=== PATIENT | male | born 1980 | race Caucasian/White ===

== ENCOUNTER 2018-03-22 09:25 | Day surgery (SDC) | payer OTHER ==
[2018-03-22] VITALS (7 sets, daily range): BP systolic 121–172; BP diastolic 45–84; PULSE 69–96; RESP 16–22; Ht 190.5 cm; Wt 99.6 kg
[~2018-03-22] VITALS: Ht 190.5 cm; Wt 99.6 kg
--- NOTE | 2018-03-22 08:16 | HPN ---
Date/Time of Note Date/Time of Note DATE: 03/22/18 TIME: 08:15 Interval H&P Admission Note Pt. seen H&P reviewed: No system changes TREY PALOMARES MD Mar 22, 2018 08:16
[~2018-03-22 09:25] MED LIST: DESFLURANE 15 MIN ONE; PROPOFOL 200 MG INJ ONE
[2018-03-22] MEDS ORDERED: ROPIVACAINE 0.5 % 30 ML VIAL ONE ×2 (13:42→14:42)
[2018-03-22] MEDS ORDERED: ONDANSETRON 4 MG INJ ONE (13:43)
[2018-03-22] MEDS ORDERED: FENTAnyl 50 MCG/ML VIAL ONE (13:43)
[2018-03-22] MEDS ORDERED: MIDAZOLAM 1 MG/ML 2 ML INJ ONE (13:43)
[2018-03-22] MEDS ORDERED: KETOROLAC 30 MG INJ ONE (13:43)
[2018-03-22] MEDS ORDERED: METOCLOPRAMIDE 10 MG INJ ONE (13:43)
[2018-03-22] MEDS ORDERED: GLYCOPYRROLATE 0.4 MG INJ ONE (13:45)
[2018-03-22] MEDS ORDERED: NEOSTIGMINE 3 MG/3 ML SYRINGE ONE (13:45)
[2018-03-22] MEDS ORDERED: EPINEPHrine 1 MG/ML 30 ML INJ ZFS ONE (14:00)
[2018-03-22] MEDS ORDERED: HYDROmorphONE 1 MG/5 ML IV SYRINGE IV PRN ×3 (14:30)
[2018-03-22] MEDS ORDERED: DIPHENHYDRAMINE 50 MG INJ IV PRN (14:30)
[2018-03-22] MEDS ORDERED: OXYCODONE/ACETAMINOPHEN (5/325) TAB PO PRN ×2 (14:30)
[2018-03-22] MEDS ORDERED: MEPERIDINE 25 MG INJ IV PRN (14:30)
[2018-03-22] MEDS ORDERED: ONDANSETRON 4 MG INJ IV PRN ×2 (14:30→17:30)
--- NOTE | 2018-03-22 14:30 | PREAC ---
Date/Time of Note Date/Time of Note DATE: 03/22/18 TIME: 14:26 Anesthesia Eval and Record Evaluation Time Pre-Procedure Interview DATE: 03/22/18 TIME: 14:26 Age 37 Sex male NPO: 8 hrs Preoperative diagnosis right knee ACL tear, medial meniscus tear Planned procedure right knee arthroscopy ACL reconstruction using pattellar tendon allograft repair medial meniscus or meniscectomy Past Medical History Past Medical History: None Surgery & Anesthesia Issues No known issue Meds Anticoagulation: No Beta Idalmis within 24 hr: No Reason Beta Idalmis not given: Pt. not on B-Idalmis No Active Prescriptions or Reported Meds Meds reviewed: Yes Allergies Coded Allergies: No Known Allergy (Unverified , 03/21/18) Allergies Reviewed: Yes Labs/Studies Labs Reviewed: Reviewed by anesthesiologist Blood Bank Test 03/22/18 10:00 Antibody Screen NEGATIVE Blood Type A POSITIVE test: N/A Studies: ECG (n/a), CXR (n/a) Pre-procedure Exam Last vitals Vital Signs Date Temp Pulse Resp B/P (MAP) Pulse Ox O2 O2 Flow FiO2 Time Delivery Rate 03/22/18 97.6 69 16 121/83 98 Room Air 10:15 (96) Airway: Adequate mouth opening Mallampati: Mallampati I Teeth: Normal Lung: Normal Heart: Normal ASA Physical Status ASA physical status: 2 Emergency: None Planned Anesthetic General/MAC: LMA Nerve block: Femoral (right) Pre-operative Attestations Prior to commencing anesthesia and surgery, the patient was re-evaluated, there was verification of: *The patient's identity *The results of appropriate recent lab work and preoperative vital signs *The above evaluation not changing prior to induction *Anesthetic plan, risk benefits, alternative and complications discussed with patient/family; questions answered; patient/family understands, accepts and wishes to proceed. SUNDAR LAZARO MD Mar 22, 2018 14:30
[2018-03-22] MEDS ORDERED: POLYMYXIN/BACITRACIN 1L IRRIG ONE (14:42)
[2018-03-22] MEDS ORDERED: BUPIVACAINE 0.5%/EPI (SDV) 30 ML INJ ONE (14:42)
[2018-03-22] MEDS ORDERED: CEFAZOLIN 1 GM INJ ONE (14:54)
[2018-03-22] MEDS ORDERED: HYDROmorphONE 2 MG/ML SYG ONE (14:58)
[2018-03-22] MEDS ORDERED: METOPROLOL 5 MG INJ ONE (17:01)
--- NOTE | 2018-03-22 17:21 | OPR ---
Date/Time of Note Date/Time of Note DATE: 03/22/18 TIME: 17:15 Operative Report Preoperative Diagnosis Right knee ACL tear, 2 medial meniscus tear Postoperative Diagnosis Same Operation/Procedure Performed Right knee arthroscopy ACL reconstruction using patellar tendon allograft Partial medial meniscectomy Surgeon see signature line Branch Operations Coordinator KALEIGH Lopez Anesthesia Type: general, other Anesthesiologist: SUNDAR LAZARO MD Estimated Blood Loss: 10 - 50 ml's Transfusion none Specimen None Grafts/Implants none Complications none Pt Condition Post Procedure: stable Disposition: PACU Indications Mr. Hackett is a 37-year-old male who sustained injury to his right knee MRI shows an ACL tear along with a medial meniscus tear he now presents for the above listed procedure risk and benefits were adequately discussed informed consent was obtained Procedure Description Patient's correct extremity was identified in the preoperative area she is brought back he was brought back to the operating room we had general internal anesthesia and an abductor canal block the right lower extremity is prepped and draped in the central manner times performed I did examine his knee under anesthesia as he had a pivot shift along with a grade to be anterior drawer maneuver. I then made a standard medial lateral portal incisions and she is scope there was a significantly degenerated tear of the medial meniscus extending from the body of the posterior horn this is adequately debrided back to stable rim of the articular surface were intact the lateral compartment was intact patellofemoral compartment was also intact the ACL was found to be scarred to the PCL this is debrided I then did a notchplasty I used a tibial ACL guide made my tibial tunnel then used a 2 mm offset guide made my femoral tunnel the graft which had previously been prepared and the back table was then passed over a Beath pin graft was fixed on the femoral side with a 8 x 23 screw I then cycled the knee and fixed the graft on the tibial side with a 9 x 23 screw both screws were bioabsorbable interference screws from [employer] I had a grade 1A Thomas at the end of the procedure the graft a Good tension in the knee I then let down tourniquet obtain adequate hemostasis the portal site incisions were closed with 3-0 nylon the anteromedial graft incision was closed in layers with the deeper tissue with a 0 subcutaneous tissue with 2-0 Vicryl and skin with running 3-0 Monocryl Steri-Strips were applied dry sterile dressing applied tourniquet was had been earlier deflated and the foot was warm well perfused at the end of the case patient was placed in a knee immobilizer transferred to recovery in stable condition TREY PALOMARES MD Mar 22, 2018 17:21
[2018-03-22] MEDS ORDERED: HYDROCODONE/APAP (5/325) TAB PO PRN ×2 (17:30)
[2018-03-22] MEDS ORDERED: morphine 4 MG/ML VIAL IV PRN (17:30)
--- NOTE | 2018-03-22 19:15 | PAC ---
Date/Time of Note Date/Time of Note DATE: 03/22/18 TIME: 19:15 Post-Anesthesia Notes Post-Anesthesia Note Last documented vital signs Vital Signs Date Temp Pulse Resp B/P (MAP) Pulse Ox O2 O2 Flow FiO2 Time Delivery Rate 03/22/18 97.7 90 18 129/74 96 18:17 (92) 03/22/18 Nasal 17:39 Cannula 03/22/18 8.0 17:29 Activity: WNL Respiratory function: WNL Cardiovascular function: WNL Mental status: Baseline Pain reasonably controlled: Yes Hydration appropriate: Yes Nausea/Vomiting absent: No SUNDAR LAZARO MD Mar 22, 2018 19:15
== END 2018-03-22 19:00 | disposition home or self-care (01) ==
LOC: SDS 09:25
PROVIDERS: ATTEND Specialist
DX: S83.241A Other tear of medial meniscus, current injury, right knee, initial encounter (principal); S83.511A Sprain of anterior cruciate ligament of right knee, initial encounter; X58.XXXA Exposure to other specified factors, initial encounter; Y93.89 Activity, other specified; Y92.89 Other specified places as the place of occurrence of the external cause; Y99.8 Other external cause status
CPT/HCPCS: 29881; 29888; 86850; 86900; 86901; J0171; J0690; J1170; J1885; J2175; J2250; J2405; J2710; J2765; J2795; J3010; Z7610; C1762